=== PATIENT | male | born 1985 | race Caucasian/White ===

== ENCOUNTER 2023-12-03 16:04 | Emergency (ER) | payer BC, SELFPAY ==
[2023-12-03 16:07] VITALS: BP 120/85; PULSE 86; RESP 20; TEMP 37.2; O2SAT 98; BMI 25.8
--- NOTE | 2023-12-03 16:23 | ED_ITS ---
HPI - General Adult General Date Seen: 12/03/23 Chief complaint: Unspecified Complaint, Adult Stated complaint: lyme's disease check Time Seen by Provider: 12/03/23 16:15 Source: patient and RN notes reviewed Mode of arrival: ambulatory Limitations: no limitations History of Present Illness HPI narrative: Patient is a 38-year-old, generally healthy male here for evaluation of a rash associated with prior tick bite. He noticed a tick, he was not sure how long was attached to what type it was about a week ago. Removed it. Over the past couple of days he has developed a circular rash around that area. He has had some nausea, decreased appetite and some nonbloody diarrhea. No fevers, body aches or joint pains. No chest pain or difficulty breathing, has had a cough he says for the past week. Related Data Home Medications ?Medication ?Instructions ?Recorded ?Confirmed No Known Home Medications 12/03/23 12/03/23 Allergies Allergy/AdvReac Type Severity Reaction Status Date / Time Penicillins Allergy Mild Anaphylaxis Verified 12/03/23 16:11 Review of Systems Status of ROS: Reports: 10 or more systems reviewed and unremarkable except as noted in History and below [facility] Social History Smoking Status: Never smoker Do you use any of these nicotine containing products: None Second hand tobacco smoke exposure: No How often do you have a drink containing alcohol: never How often do you have six or more drinks on one occasion: Never AUDIT-C Alcohol total score: 0 Non-prescribed substance use: denies use service: No Exam Narrative: Exam Narrative: Vital signs as noted above. In general, an alert, well-appearing patient. Head: Normocephalic, atraumatic. Eyes: Pupils are equal reactive. Extraocular movements are full. Conjunctivae are normal. ENT: Mucous membranes are moist. Neck: Supple without lymphadenopathy. Heart: Heart is irregular, sounds like a bigeminal pattern. No significant murmur. No Lungs: Clear bilaterally. No increased work of breathing, crackles or wheezes. Abdomen: Soft and nontender. He has a small bite wound on the left lower abdomen with about a 4 cm ovoid target rash around it. Extremities: Well perfused. No edema. No calf tenderness. Pulses intact. Neurologic: Patient is alert and oriented to person and place. Speech is fluent. Face is symmetric. Moves all extremities equally. Affect: Normal. Skin: Warm and dry. Well perfused. Const: Vital Signs, click to edit/add: Vital Signs - 24 hr 12/03/23 16:07 12/03/23 17:35 Temperature 98.9 F Pulse Rate [Pulse Oximeter] 86 Respiratory Rate 20 Blood Pressure [Ri ght Upper Arm] 120/85 130/68 Pulse Oximetry 98 Oxygen Delivery Me thod Room Air Documenting provider has reviewed patient's vital signs: yes Course Course ED Course: I did do an EKG here, I am fairly certain that when I listen to him he was in bigeminy but at the time of his EKGs in a sinus rhythm, ventricular rate of 79, normal corrected QT, normal TN. I checked a troponin to rule out possibility of myocarditis and this was negative. Electrolytes are normal with the exception of a potassium of 3.4, CBC shows normal white blood cell count with very minimal monocytosis. Plan will be to treat for presumed Lyme disease. I did send Lyme testing as his area of redness does not quite meet criteria. Discussed with him if the testing is negative then I think we can discontinue the antibiotic. Otherwise plan for 14 days of doxycycline for presumed Lyme disease. For palpitations, lightheadedness, shortness of breath, chest pain, fainting, high fevers, worsening rash or other new symptoms, return to the emergency department for re-evaluation. Vital Signs Vital signs: Initial Vital Signs Temperature 98.9 F 12/03/23 16:07 Temperature Source Temporal Artery Scan 12/03/23 16:07 Pulse Rate 86 12/03/23 16:07 Pulse Rhythm Regular 12/03/23 16:07 Respiratory Rate 20 12/03/23 16:07 Blood Pressure 120/85 12/03/23 16:07 Blood Pressure Mean 96 12/03/23 16:07 Blood Pressure Position Sitting 12/03/23 16:07 Pulse Oximetry 98 12/03/23 16:07 Oxygen Delivery Method Room Air 12/03/23 16:07 Vital Signs Temperature 98.9 F 12/03/23 16:07 Pulse Rate 86 12/03/23 16:07 Respiratory Rate 20 12/03/23 16:07 Blood Pressure 120/85 12/03/23 16:07 Pulse Oximetry 98 12/03/23 16:07 Oxygen Delivery Method Room Air 12/03/23 16:07 Temperature 98.9 F 12/03/23 16:07 Pulse Rate 86 12/03/23 16:07 Respiratory Rate 20 12/03/23 16:07 Blood Pressure 130/68 12/03/23 17:35 Pulse Oximetry 98 12/03/23 16:07 Oxygen Delivery Method Room Air 12/03/23 16:07 Medical Decision Making Lab Data Labs: Lab Results 12/03/23 12/03/23 Range/Units 16:21 16:30 WBC 5.99 (4.50-11.00) K/uL RBC 5.70 (4.30-5.90) m/uL Hgb 17.1 (13.5-17.5) gm/dL Hct 47.1 (37.0-53.0) % MCV 83 (80-100) fL MCH 30 (26-34) pg MCHC 36 (32-36) gm/dL RDW Coeff of Steffanie 11.8 (11.5-15.5) % Plt Count 265 (140-440) K/uL Neut % (Auto) 61.2 (42.0-72.0) % Lymph % (Auto) 24.2 (20-44) % [place] % (Auto) 14.0 H (0.0-11.0) % Eos % (Auto) 0.2 (0.0-7.0) % Baso % (Auto) 0.2 (0.0-3.0) % Neut # (Auto) 3.67 (1.7-7.0) K/uL Lymph # (Auto) 1.45 (0.90-2.90) K/uL [place] # (Auto) 0.80 (0.00-0.90) K/UL Eos # (Auto) 0.01 (0.00-0.50) K/uL Baso # (Auto) 0.01 (0.00-0.30) K/uL Abs Immat Gran (auto) 0.01 (0.00-0.30) K/uL Imm/Tot Granulo (auto) 0.2 % Sodium 135 (135-149) mmol/L Potassium 3.4 L (3.6-5.1) mmol/L Chloride 103 (96-114) mmol/L Carbon Dioxide 23 (20-32) mmol/L Anion Gap 9 (7-15) mEq/L BUN 23 (5-24) mg/dL Creatinine 1.2 (0.5-1.5) mg/dL Estimated Creat Clear 87.15 Estimated GFR 78 ml/min Glucose 95 (60-115) mg/dL Calcium 8.6 (8.4-10.6) mg/dL POC Troponin I 0.01 (0.01-0.04) ng/ml Discharge Plan Discharge Clinical Impression: Lyme borreliosis Patient Disposition: Home, Self-Care Condition: Stable Instructions: Lyme Disease (ED) Additional Instructions: Doxycycline as prescribed. If the Lyme testing happens to be negative, we will call you in you can discontinue the doxycycline, otherwise we are treating for presumed Lyme disease. For high fevers, severe headache, chest pain, shortness of breath or other worsening, return to the emergency department. Your EKG looks normal, I do not see any evidence of the rhythm that I heard when I listen to her heart, the suggest this may be something that you go in and out of and it is not otherwise causing any problems. Prescriptions: No Action No Known Home Medications Follow Up/Referrals: Provider,Not a Local [Primary Care Provider] - Stand Alone Forms: [facility] Info Instructions
[2023-12-03 16:41] LABS: Troponin, Point-of-Care* 0.01 ng/ml (0.01-0.04)
[2023-12-03 16:43] LABS: Basophils Absolute Auto 0.01 K/uL (0.00-0.30); Basophils Percent Auto 0.2 % (0.0-3.0); Eosinophils Absolute Auto 0.01 K/uL (0.00-0.50); Eosinophils Percent Auto 0.2 % (0.0-7.0); Hematocrit 47.1 % (37.0-53.0); Hemoglobin* 17.1 gm/dL (13.5-17.5); Immature Granulocytes Abs Auto 0.01 K/uL (0.00-0.30); Immature Granulocytes Pct Auto 0.2 %; Lymphocytes Absolute Auto 1.45 K/uL (0.90-2.90); Lymphocytes Percent Auto 24.2 % (20-44); Mean Corpuscular HGB Conc 36 gm/dL (32-36); Mean Corpuscular Hemoglobin 30 pg (26-34); Mean Corpuscular Volume 83 fL (80-100); Neutrophils Absolute Auto 3.67 K/uL (1.7-7.0); Neutrophils Percent Auto 61.2 % (42.0-72.0); Platelet Count* 265 K/uL (140-440); RDW Coefficient of Variation % 11.8 % (11.5-15.5); White Blood Count* 5.99 K/uL (4.50-11.00)
[2023-12-03 16:48] LABS: Slide Review Reflex No
[2023-12-03 16:59] LABS: Chloride* 103 mmol/L (96-114)
[2023-12-03 17:00] LABS: Potassium* 3.4 mmol/L (3.6-5.1); Sodium* 135 mmol/L (135-149)
[2023-12-03 17:02] LABS: Creatinine* 1.2 mg/dL (0.5-1.5); Est. Creatinine Clearance* 87.15; Estimated Glomerular Filt Rate 78 ml/min
[2023-12-03 17:03] LABS: Anion Gap 9 mEq/L (7-15); Blood Urea Nitrogen* 23 mg/dL (5-24); Calcium* 8.6 mg/dL (8.4-10.6); Carbon Dioxide* 23 mmol/L (20-32); Glucose* 95 mg/dL (60-115)
[2023-12-03 17:35] VITALS: BP 130/68
== END 2023-12-03 17:37 | disposition home or self-care (01) ==
PROVIDERS: Emergency Provider Emergency Medicine
DX: R21 Rash and other nonspecific skin eruption (principal); S30.861A Insect bite (nonvenomous) of abdominal wall, initial encounter; A69.20 Lyme disease, unspecified
CPT/HCPCS: 36415; 80048; 84484; 85025; 86618; 93005; 99283; 99284